=== PATIENT | female | born 1935 | race Caucasian/White ===

== ENCOUNTER → 2017-09-18 | Outpatient (CLI) | payer MEDICARE ==
[~2017-09-18] MED LIST: ALEN70TA2 PO; ASPI81TA94 PO; AZEL137S NS; AZEL205.2 NS; AZEL23SP NS; CALC1CAP26 PO; CHOL200038 PO; DEN60I SUBQ; ERGO2000 PO; FLUT16SP19 NS; GOLYTE PO; GUAI1200 PO; LETPT PO; LETR2.5T4 PO; LOVA10TA63 PO; MON10 PO; OMEP40CA79 PO; PNEU0.5D3 IM; SOLI10TA8 PO; TROS60CA PO; [UNRECOGNIZED DRUG - CODE] PO
[2017-09-18 08:21] LABS: PLATELET COUNT, AUTOMATED 214 K/uL (150-450)
[2017-09-18 08:39] LABS: LDL CHOLESTEROL 121 mg/dl
== END ==
LOC: LAB 08:01
PROVIDERS: ATTEND Internal Medicine
DX: E78.5 Hyperlipidemia, unspecified (principal); M81.0 Age-related osteoporosis without current pathological fracture; E07.9 Disorder of thyroid, unspecified; D75.89 Other specified diseases of blood and blood-forming organs; Z79.899 Other long term (current) drug therapy
CPT/HCPCS: 36415; 82040; 82247; 82310; 82374; 82435; 82465; 82565; 82947; 83718; 84075; 84132; 84155; 84295; 84443; 84450; 84460; 84478; 84520; 85025

== ENCOUNTER → 2017-09-30 | Outpatient (CLI) | payer MEDICARE ==
--- NOTE | 2017-09-30 13:10 | RADIOLOGY IMAGING REPORT ---
FACILITY: [facility] PATIENT NAME: Penny Lozano : 1935 MR: [id number] V: [id number] EXAM DATE: ORDERING PHYSICIAN: CHARLI PRICE TECHNOLOGIST: [place] [facility] [place] Loz[place] : 1935 Visit/Account:[id number] Date of Sevice: 09/30/2017 Left wrist, three views. HISTORY: Left wrist pain status post fall. COMPARISON: None. The bones are osteoporotic. An oblique mildly comminuted fracture is present in the distal radial me taphysis resulting in mild impaction of fracture fragments and mild volar angulation of the distal fr agment. The triangular fibrocartilage is partially calcified. Moderate size marginal osteophytes, s ubchondral sclerosis, subchondral cysts, and severe joint space narrowing are present in the first ca rpal-metacarpal joint. Small marginal osteophytes and small subchondral cysts are present in the sca phoid multangular joint. Mild soft tissue swelling is present in the wrist. A few small calcificati ons are scattered in the soft tissues. IMPRESSION: Distal radius fracture. 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 Report Dictated By: Sha Leon MD at 09/30/2017 1:02 PM Report E-Signed By: Sha Leon MD at 09/30/2017 1:05 PM WSN:[email or web address]
== END ==
LOC: RAD 11:37
PROVIDERS: ATTEND Internal Medicine
DX: S52.502A Unspecified fracture of the lower end of left radius, initial encounter for closed fracture (principal); W19.XXXA Unspecified fall, initial encounter

== ENCOUNTER → 2017-10-08 | Outpatient (CLI) | payer MEDICARE ==
--- NOTE | 2017-10-08 11:33 | RADIOLOGY IMAGING REPORT ---
FACILITY: [facility] PATIENT NAME: CATRACHO MARTINEZ : [id number] MR: [id number] V: [id number] EXAM DATE: ORDERING PHYSICIAN: CHARLI PRICE TECHNOLOGIST: Aye Ortega PROCEDURE:BILATERAL DIGITAL SCREENING MAMMOGRAM WITH CAD ASSISTED INTERPRETATION & 3D TOMOSYNTHESIS COMPARISON:Prior mammograms 09/13/16, 08/16/15, 05/19/15, 08/09/14. INDICATIONS:SCREENING FINDINGS: Mildly heterogeneous fibroglandular tissue is seen throughout the breasts. The Left breast is smaller than the Right and there is an area of postsurgical scaring and architectural distortion in the upper outer quadrant of the Left breast from prior lumpectomy. There is no evidence of malignant appearing mass, malignant appearing calcifications or other secondary sign of malignancy in either breast at this time. DIAGNOSTIC CATEGORY 2--BENIGN FINDING. RECOMMENDATIONS: ROUTINE MAMMOGRAM AND CLINICAL EVALUATION. IMPRESSION: BIRADS 2: Benign finding No significant abnormality is seen at this time. Dictated by: Dorita Chen M.D. on 10/08/2017 at 10:23 Transcribed by: CELESTE on 10/08/2017 at 11:03 Approved by: Dorita Chen M.D. on 10/08/2017 at 11:33 [facility]
== END ==
LOC: MAMO 02:14
PROVIDERS: ATTEND Internal Medicine
DX: Z12.31 Encounter for screening mammogram for malignant neoplasm of breast (principal)
CPT/HCPCS: 77063; 77067

== ENCOUNTER → 2018-03-23 | Outpatient (CLI) | payer MEDICARE ==
[2018-03-23 07:36] LABS: PLATELET COUNT, AUTOMATED 197 K/uL (150-450)
[2018-03-23 07:43] LABS: INR 0.94
== END ==
LOC: LAB 07:17
PROVIDERS: ATTEND Orthopaedic Surgery
DX: M50.30 Other cervical disc degeneration, unspecified cervical region (principal); M54.12 Radiculopathy, cervical region
CPT/HCPCS: 36415; 82310; 82374; 82435; 82565; 82947; 84132; 84295; 84520; 85049; 85610; 85651; 85730

== ENCOUNTER → 2018-10-01 | Outpatient (CLI) | payer MEDICARE ==
[~2018-10-01] MED LIST changes: -ALEN70TA2 PO; +ALEN70TA46 PO
[2018-10-01 08:08] LABS: PLATELET COUNT, AUTOMATED 215 K/uL (150-450)
[2018-10-01 08:21] LABS: LDL CHOLESTEROL 113 mg/dl
== END ==
LOC: LAB 07:37
PROVIDERS: ATTEND Nurse Practitioner Family
DX: M81.0 Age-related osteoporosis without current pathological fracture (principal); Z79.899 Other long term (current) drug therapy; E78.5 Hyperlipidemia, unspecified; D75.89 Other specified diseases of blood and blood-forming organs
CPT/HCPCS: 36415; 82040; 82247; 82310; 82374; 82435; 82465; 82565; 82947; 83718; 84075; 84132; 84155; 84295; 84443; 84450; 84460; 84478; 84520; 85025

== ENCOUNTER → 2018-10-02 | Outpatient (CLI) | payer MEDICARE | LOC: LAB 07:33 | PROVIDERS: ATTEND Nurse Practitioner Family | DX: R71.8 Other abnormality of red blood cells (principal) | CPT/HCPCS: 36415; 82607; 82746; 83090; 83921 ==

== ENCOUNTER 2018-10-06 19:46 | Inpatient (IN) | payer MEDICARE ==
[~2018-10-06] VITALS: Ht 160 cm; Wt 44.5 kg
[2018-10-06] MEDS ORDERED: ONDANSETRON 4 MG/2 ML VIAL IVP ONE (20:05)
[2018-10-06] MEDS ORDERED: NS(*) 0.9% 1000 ML BAG 1,000 ML IV ONE ×2 (20:05→22:00)
[2018-10-06] MEDS ORDERED: fentaNYL CITR 100 MCG/2 ML AMP IVP ONE (20:05)
--- NOTE | 2018-10-06 20:09 | ER Report ---
History and Physical Time Seen By MD: 20:00 Hx. of Stated Complaint: PATIENT STARTED HAVING ABDOMINAL PAIN AROUND 0600 THIS AM, PATIENT HAS HAD VOMITING. TOOK KOPECTATE. HPI/ROS CHIEF COMPLAINT: Abdominal pain HISTORY OF PRESENT ILLNESS: 83-year-old female presents with abdominal pain that began this morning. She states she had oatmeal for breakfast and noted pain throughout her abdomen subsequently. Pain is sharp and crampy. Pain has been constant and is severe. She attempted to take Kaopectate which she vomited 1. She has been continuously nauseous but has not subsequently vomited. She has been belching more than normal. She is not been passing gas today and did not have bowel movement. She has had no recent history of constipation or bloody or black stools. She has never had similar pain in the past. She is had multiple remote surgeries including hysterectomy, bilateral ovarian removal for ovarian cancer. She has not had her appendix or gallbladder removed. She has had surgery for breast cancer as well as brain tumor. She is short of breath that she thinks this is due to the pain. She has no chest pain. She has not had fevers. She has no change in urination. She has no lower extremity edema. REVIEW OF SYSTEMS: Constitutional: No fever, no chills. Eyes: no blurred vision ENT: No sore throat. Cardiovascular: No chest pain, no palpitations. Respiratory: No cough, no shortness of breath. Gastrointestinal: above Genitourinary: no dysuria Musculoskeletal: No back pain. Skin: No rashes. Neurological: No headache. Remainder of the 14 system rev: Yes Allergies: Coded Allergies: codeine (Verified Adverse Reaction, Mild, NAUSEA/VOMITING, 10/06/18) Uncoded Allergies: MORPHINE (Adverse Reaction, Intermediate, NAUSEA/VOMITING, 08/11/14) Home Meds Active Scripts Azelastine Hcl 0.1% [place] (AZELASTINE HCL 0.1% SPRAY) 137 Mcg/0.137 Ml [place].pump, 2 SPRAY NS BID PRN for allergy symptoms, #1 BOTTLE 5 Refills Prov:CHARLI PRICE MD 08/18/18 Trospium Chloride (TROSPIUM CHLORIDE) 60 Mg Cap.er.24h, 1 CAP PO QDAY, #90 CAP 3 Refills Prov:CHARLI PRICE MD 11/16/18 Fluticasone Prop 50 Mcg Ns (FLONASE 50 MCG NS) 16 Gm [place].susp, 1 SPRAY NS BID, #2 BOT 5 Refills Prov:CHARLI PRICE MD 03/13/18 Reported Medications Cholecalciferol (Vitamin D3) (VITAMIN D3) 2,000 Unit Tablet, 1 CAP PO QDAY 03/04/17 Calcium Carbonate/Vitamin D3 (CALCIUM 600 + VIT D 400 SOFTGL) 1 Each Capsule, 1 CAP PO QDAY, CAPSULE 09/11/16 Denosumab (PROLIA) Unknown Strength Injs, 1 SUBQ Every 6 months 10/26/14 Aspirin (ASPIRIN) 81 Mg Tab.chew, 1 TAB PO QODAY, TAB.CHEW 08/11/14 Methylsulfonylmethane (MSM) 1,000 Mg Capsule, 1 CAP PO TID, CAPSULE 03/17/14 Reviewed Nurses Notes: Yes Old Medical Records Reviewed: Yes Hx Smoking: No Smoking Status: Never Smoker Exposure to Second Hand Smoke?: No Hx Substance Use Disorder: No Hx Alcohol Use: Yes Constitutional Vital Sign - Last 24 Hours 10/06/18 10/06/18 10/06/18 10/06/18 19:51 20:00 20:30 20:31 Temp 97.7 Pulse 69 67 Resp 24 B/P (MAP) 108/93 117/78 (91) 113/82 (92) Pulse Ox 98 96 O2 Delivery Room Air 10/06/18 10/06/18 10/06/18 10/06/18 20:36 20:41 20:56 21:00 Pulse 64 ??? 81 B/P (MAP) 124/75 (91) Pulse Ox 89 98 98 10/06/18 10/06/18 10/06/18 10/06/18 21:01 21:06 21:11 21:16 Pulse 74 78 90 83 Pulse Ox 95 89 73 96 10/06/18 10/06/18 10/06/18 10/06/18 21:21 21:26 21:36 21:41 Pulse 82 86 88 83 Pulse Ox 94 95 95 96 10/06/18 10/06/18 10/06/18 10/06/18 21:46 21:51 21:56 22:01 Pulse 87 81 75 82 Pulse Ox 94 95 96 96 10/06/18 10/06/18 10/06/18 10/06/18 22:06 22:11 22:16 22:21 Pulse 83 84 87 82 Pulse Ox 96 97 96 94 Intake and Output 10/06/18 10/06/18 10/07/18 14:59 22:59 06:59 Intake Total 1000 ml Balance 1000 ml Physical Exam General Appearance: The patient is alert, has no immediate need for airway protection and no signs of toxicity. Eyes: Pupils equal and round no pallor or injection. ENT, Mouth: Mucous membranes are moist. Respiratory: There are no retractions, lungs are clear to auscultation. Cardiovascular: Regular rate and rhythm. Gastrointestinal: Patient has lower abdominal distention and bilateral tenderness. She does not have upper abdominal tenderness. She has bowel sounds in all 4 quadrants. She has guarding and slight rebound tenderness in bilateral lower quadrants. Neurological: alert, oriented, moves all ext Skin: Warm and dry, no rashes. Musculoskeletal: Extremities are nontender, nonswollen and have full range of motion. DIFFERENTIAL DIAGNOSIS: After history and physical exam differential diagnosis was considered for abdominal pain including but not limited to appendicitis, obstruction, mass, AAA, cholecystitis, gastritis and urinary tract infection. Medical Decision Making Data Points Result Diagram: 10/06/18199910/06/181999 Laboratory Hematology Test 10/06/18 20:00 10/06/18 21:30 Red Blood Count 4.64 M/uL (4.17-5.56) Mean Corpuscular Volume 99.5 fL (80.0-96.0) Mean Corpuscular Hemoglobin 33.5 pg (26.0-33.0) Mean Corpuscular Hemoglobin Concent 33.6 g/dL (32.0-36.0) Red Cell Distribution Width 13.3 % (11.5-14.5) Mean Platelet Volume 8.3 fL (7.2-11.1) Neutrophils (%) (Auto) 78.2 % (39.4-72.5) Lymphocytes (%) (Auto) 17.5 % (17.6-49.6) Monocytes (%) (Auto) 3.8 % (4.1-12.4) Eosinophils (%) (Auto) 0.1 % (0.4-6.7) Basophils (%) (Auto) 0.4 % (0.3-1.4) Nucleated RBC Relative Count (auto) 0.0 /100WBC Neutrophils # (Auto) 7.8 K/uL (2.0-7.4) Lymphocytes # (Auto) 1.8 K/uL (1.3-3.6) Monocytes # (Auto) 0.4 K/uL (0.3-1.0) Eosinophils # (Auto) 0.0 K/uL (0.0-0.5) Basophils # (Auto) 0.0 K/uL (0.0-0.1) Nucleated RBC Absolute Count (auto) 0.00 K/uL Prothrombin Time 12.2 seconds (12.0-14.4) Prothromb Time International Ratio 0.91 Activated Partial Thromboplast Time 28 seconds (23-35) Sodium Level 138 mmol/L (137-145) Potassium Level 3.4 mmol/L (3.5-5.0) Chloride Level 102 mmol/L (98-107) Carbon Dioxide Level 23 mmol/L (22-31) Blood Urea Nitrogen 20 mg/dl (7-18) Creatinine 1.00 mg/dl (0.52-1.04) Glomerular Filtration Rate Calc 53.2 Random Glucose 132 mg/dl (75-110) Calcium Level 11.0 mg/dl (8.4-10.2) Total Bilirubin 0.5 mg/dl (0.2-1.3) Aspartate Amino Transf (AST/SGOT) 26 U/L (0-35) Alanine Aminotransferase (ALT/SGPT) 24 U/L (0-56) Alkaline Phosphatase 60 U/L (0-126) Total Protein 7.7 g/dl (6.3-8.2) Albumin 4.6 g/dl (3.5-5.0) Lipase 273 U/L (23-300) Urine Color Yellow Urine Clarity Cloudy Urine pH 6.0 pH (4.8-9.5) Urine Specific [place] >1.060 Urine Protein Negative mg/dL (NEGATIVE) Urine Glucose (UA) Negative mg/dL (NEGATIVE) Urine Ketones 20 mg/dL (NEGATIVE) Urine Blood Negative (NEGATIVE) Urine Nitrite Negative (NEGATIVE) Urine Bilirubin Negative (NEGATIVE) Urine Urobilinogen Negative mg/dL (0.2-1.9) Urine Leukocyte Esterase Moderate (NEGATIVE) Urine RBC 7 /HPF (0-2/HPF) Urine WBC 1 /HPF (0-5/HPF) Urine Squamous Epithelial Cells Many /LPF (</=FEW) Urine Transitional Epithelial Cells Few /LPF (NONE-FEW) Urine Bacteria Negative /HPF (NONE-FEW) Urine Mucus Few /HPF (NONE-FEW) Chemistry Test 10/06/18 20:00 10/06/18 21:30 White Blood Count 10.0 k/uL (4.5-11.0) Red Blood Count 4.64 M/uL (4.17-5.56) Hemoglobin 15.5 g/dL (12.0-16.0) Hematocrit 46.2 % (34.0-47.0) Mean Corpuscular Volume 99.5 fL (80.0-96.0) Mean Corpuscular Hemoglobin 33.5 pg (26.0-33.0) Mean Corpuscular Hemoglobin Concent 33.6 g/dL (32.0-36.0) Red Cell Distribution Width 13.3 % (11.5-14.5) Platelet Count 284 K/uL (150-450) Mean Platelet Volume 8.3 fL (7.2-11.1) Neutrophils (%) (Auto) 78.2 % (39.4-72.5) Lymphocytes (%) (Auto) 17.5 % (17.6-49.6) Monocytes (%) (Auto) 3.8 % (4.1-12.4) Eosinophils (%) (Auto) 0.1 % (0.4-6.7) Basophils (%) (Auto) 0.4 % (0.3-1.4) Nucleated RBC Relative Count (auto) 0.0 /100WBC Neutrophils # (Auto) 7.8 K/uL (2.0-7.4) Lymphocytes # (Auto) 1.8 K/uL (1.3-3.6) Monocytes # (Auto) 0.4 K/uL (0.3-1.0) Eosinophils # (Auto) 0.0 K/uL (0.0-0.5) Basophils # (Auto) 0.0 K/uL (0.0-0.1) Nucleated RBC Absolute Count (auto) 0.00 K/uL Prothrombin Time 12.2 seconds (12.0-14.4) Prothromb Time International Ratio 0.91 Activated Partial Thromboplast Time 28 seconds (23-35) Glomerular Filtration Rate Calc 53.2 Calcium Level 11.0 mg/dl (8.4-10.2) Total Bilirubin 0.5 mg/dl (0.2-1.3) Aspartate Amino Transf (AST/SGOT) 26 U/L (0-35) Alanine Aminotransferase (ALT/SGPT) 24 U/L (0-56) Alkaline Phosphatase 60 U/L (0-126) Total Protein 7.7 g/dl (6.3-8.2) Albumin 4.6 g/dl (3.5-5.0) Lipase 273 U/L (23-300) Urine Color Yellow Urine Clarity Cloudy Urine pH 6.0 pH (4.8-9.5) Urine Specific [place] >1.060 Urine Protein Negative mg/dL (NEGATIVE) Urine Glucose (UA) Negative mg/dL (NEGATIVE) Urine Ketones 20 mg/dL (NEGATIVE) Urine Blood Negative (NEGATIVE) Urine Nitrite Negative (NEGATIVE) Urine Bilirubin Negative (NEGATIVE) Urine Urobilinogen Negative mg/dL (0.2-1.9) Urine Leukocyte Esterase Moderate (NEGATIVE) Urine RBC 7 /HPF (0-2/HPF) Urine WBC 1 /HPF (0-5/HPF) Urine Squamous Epithelial Cells Many /LPF (</=FEW) Urine Transitional Epithelial Cells Few /LPF (NONE-FEW) Urine Bacteria Negative /HPF (NONE-FEW) Urine Mucus Few /HPF (NONE-FEW) Coagulation Test 10/06/18 20:00 Prothrombin Time 12.2 seconds Prothromb Time International Ratio 0.91 Activated Partial Thromboplast Time 28 seconds Urinalysis Test 10/06/18 21:30 Urine Color Yellow Urine Clarity Cloudy Urine pH 6.0 pH (4.8-9.5) Urine Specific [place] >1.060 Urine Protein Negative mg/dL (NEGATIVE) Urine Glucose (UA) Negative mg/dL (NEGATIVE) Urine Ketones 20 mg/dL (NEGATIVE) Urine Blood Negative (NEGATIVE) Urine Nitrite Negative (NEGATIVE) Urine Bilirubin Negative (NEGATIVE) Urine Urobilinogen Negative mg/dL (0.2-1.9) Urine Leukocyte Esterase Moderate (NEGATIVE) Urine RBC 7 /HPF (0-2/HPF) Urine WBC 1 /HPF (0-5/HPF) Urine Squamous Epithelial Cells Many /LPF (</=FEW) Urine Transitional Epithelial Cells Few /LPF (NONE-FEW) Urine Bacteria Negative /HPF (NONE-FEW) Urine Mucus Few /HPF (NONE-FEW) ED Course/Re-evaluation ED Course 83 f presents with abdominal pain, distension, vomiting x 1. Findings c/w small bowel obstruction. Pt with improved comfort in ED, HD stable. Consulted Dr. Jackson for admission. Decision to Disposition Date: Oct 06, 2018 Decision to Disposition Time: 20:15 Depart Departure Latest Vital Signs Vital Signs Date Time Temp Pulse Resp B/P (MAP) Pulse Ox O2 Delivery O2 Flow Rate FiO2 10/06/18 22:21 82 94 10/06/18 21:00 124/75 (91) 10/06/18 19:51 97.7 24 Room Air Impression: Primary Impression: Small bowel obstruction Condition: Improved Disposition: Admitted from ER Referrals: CHAZ MARQUEZ APRN BULL WHEEL WORKER-C (PCP) CARLOS MILES MD Oct 06, 2018 20:09
[2018-10-06 20:20] LABS: PLATELET COUNT, AUTOMATED 284 K/uL (150-450)
[2018-10-06 20:26] LABS: INR 0.91
[2018-10-06] MEDS ORDERED: IOPAMIDOL 76% 150 ML INFUS BTL 150 ML ONE (20:48)
--- NOTE | 2018-10-06 21:28 | RADIOLOGY IMAGING REPORT ---
FACILITY: [facility] - [place] PATIENT NAME: Penny Lozano : 1935 MR: [id number] V: [id number] EXAM DATE: ORDERING PHYSICIAN: CARLOS MILES TECHNOLOGIST: [place] [facility] [place] Loz[place] : 1935 Visit/Account:[id number] Date of Sevice: 10/06/2018 ADDENDUM #1 ADDENDUM: Multiple pulmonary nodules as above. In a low risk patient, these require no routine follow-up. In a high risk patient consider optional CT at 12 months. Report Dictated By: Adina Taylor MD at 10/06/2018 9:32 PM Report E-Signed By: Adina Taylor MD at 10/06/2018 9:34 PM ORIGINAL REPORT COMPUTED TOMOGRAPHY OF THE Abdomen and Pelvis with CONTRAST INDICATION: Bilateral lower quadrant pain. TECHNIQUE: Contiguous axial 3.[address] images were obtained through the abdomen and pelvis after 75 m L [id number]. Coronal and sagittal reformatted images were submitted. COMPARISON: None. FINDINGS: Lung bases: 3 mm nodule at the right lung base series 2 image six. 2 mm nodule left lung base series 2 image six. 4 mm nodule right lung base series 2 image nine. 6 mm nodule right lung base series 2 image 10. Liver and hepatic vasculature: Probable cyst in the lateral segment of the left lobe. Several addit ional subcentimeter hypodensities are too small to characterize but are probably cysts. Additional c yst in the right lobe series 2 image 38. A small volume of low attenuation fluid tracks adjacent to the liver and within the left and right paracolic gutters. There is a small volume of fluid in the p chris as well as surrounding several dilated bowel loops. Gallbladder and bile ducts: Normal Spleen: Punctate calcification in the spleen may reflect an old granulomatous process. Pancreas: Normal pancreas. Adrenals: Normal adrenals. Kidneys, ureters and bladder: Symmetric enhancement. There are multiple small renal cysts. Normal- appearing bladder. Retroperitoneum and aorta: Moderate aortic atherosclerosis. No aneurysm. GI tract, mesentery and peritoneum: Multiple small bowel loops are dilated and fluid-filled. Dilatio n measures between three and 4 cm. Several of these loops are thick-walled, especially in the left h emiabdomen no pneumatosis or portal venous gas. There may be a transition point in the low mid abdom en near series 2 image 92. There is gas and stool within the colon. No free air. Uterus and adnexa: Surgically absent uterus. Bones and soft tissues: No acute osseous abnormality. Multilevel degenerative findings in the spine. IMPRESSION: Small bowel obstruction, likely mechanical, with multiple dilated, thick-walled small bowel loops. T here is scattered fluid within the abdomen but no perforation. There may be a transition point in th e low midabdomen. One of the following dose optimization techniques was utilized in the performance of this exam: Autom ated exposure control; adjustment of the mA and/or kV according to the patient's size; or use of an i terative reconstruction technique. Specific details can be referenced in the facility's radiology C T exam operational policy. Report Dictated By: Adina Taylor MD at 10/06/2018 9:12 PM Report E-Signed By: Adina Taylor MD at 10/06/2018 9:24 PM WSN:[email or web address]
[2018-10-06] MEDS ORDERED: FAMOTIDINE(*) 20MG/50ML PREMIX 50 ML IVPB ONE (22:35)
[2018-10-06 23:00] VITALS: BP 147/82
--- NOTE | 2018-10-06 23:48 | Gen Surgery History & Physical ---
History of Present Illness Chief Complaint abd pain History of Present Illness 83 yo f with abd pain since early this am. pain was severe but now is much improved. vomited twice. last bm was yesterday. h/o abd surgeries. pmh/psh: ovarian ca s/p hysterectomy and bso in the s, breast cancer in the and brain tumor in the . fam hx: denies social hx: 1 drink with dinner History Home Meds Active Scripts Azelastine Hcl 0.1% [place] (AZELASTINE HCL 0.1% SPRAY) 137 Mcg/0.137 Ml [place].pump, 2 SPRAY NS BID PRN for allergy symptoms, #1 BOTTLE 5 Refills Prov:CHARLI PRICE MD 08/18/18 Trospium Chloride (TROSPIUM CHLORIDE) 60 Mg Cap.er.24h, 1 CAP PO QDAY, #90 CAP 3 Refills Prov:CHARLI PRICE MD 05/22/18 Fluticasone Prop 50 Mcg Ns (FLONASE 50 MCG NS) 16 Gm [place].susp, 1 SPRAY NS BID, #2 BOT 5 Refills Prov:CHARLI PRICE MD 03/13/18 Reported Medications Cholecalciferol (Vitamin D3) (VITAMIN D3) 2,000 Unit Tablet, 1 CAP PO QDAY 03/04/17 Calcium Carbonate/Vitamin D3 (CALCIUM 600 + VIT D 400 SOFTGL) 1 Each Capsule, 1 CAP PO QDAY, CAPSULE 09/11/16 Denosumab (PROLIA) Unknown Strength Injs, 1 SUBQ Every 6 months 10/26/14 Aspirin (ASPIRIN) 81 Mg Tab.chew, 1 TAB PO QODAY, TAB.CHEW 08/11/14 Methylsulfonylmethane (MSM) 1,000 Mg Capsule, 1 CAP PO TID, CAPSULE 03/17/14 Allergies: Coded Allergies: codeine (Verified Adverse Reaction, Mild, NAUSEA/VOMITING, 10/06/18) Uncoded Allergies: MORPHINE (Adverse Reaction, Intermediate, NAUSEA/VOMITING, 08/11/14) Patient History: FH: AL (myocardial infarction) MOTHER, , Age:62 FH: diabetes mellitus MATERNAL GRANDMOTHER, MATERNAL COUSIN, MATERNAL AUNT, FH: lung cancer PATERNAL GRANDFATHER, FH: pneumonia BROTHER OR SISTER, , Age:58 FH: prostate cancer MATERNAL GRANDFATHER, FHx: leukemia MATERNAL GRANDMOTHER, Review of Systems Constitutional: Other (10 pt ros neg except per hpi) Exam General Appearance: Alert, Awake, No Acute Distress Neuro: No Gross deficits Eyes: Other (per, eomi) ENT: Moist Mucous Membranes Neck: No Masses Cardiovascular: Other (reg rate) Respiratory: No Respiratory Distress GI: Other (soft, minimal distended and minimally ttp, well-healed surg scars) Extremities: Other (no pitting edema) Integumentary: Skin Intact without Lesion / Mass Psych: Alert & Oriented X3, Appropriate Mood & Affect Medical Decision Making Data Points Result Diagram: 10/06/18199910/06/181999 Assessment and Plan Problems: (1) Small bowel obstruction Assessment & Plan: 10/06/18: comfortable, minimal distention. npo, ivf, serial exams. if no resolution may need gastrografin and/or surgery. Copies to: CHAZ MARQUEZ APRN ASSISTANT CLINICAL DIRECTOR-C ; Venous Thromboembolism Antithrombotics Is Pt On Any Antithrombotics?: No OSMANI WARD Oct 06, 2018 23:48
[2018-10-07] MEDS: fentaNYL CITR 100 MCG/2 ML AMP IVP PRN ×2 (00:26→07:54)
[2018-10-07] MEDS: ONDANSETRON 4 MG/2 ML VIAL IVP PRN ×3 (02:34→18:35)
[2018-10-07 04:22] VITALS: BP 125/67
[2018-10-07 07:30] VITALS: BP 129/80
[2018-10-07 09:09] VITALS: BMI 17.4
--- NOTE | 2018-10-07 09:30 | General Surgery Progress Note ---
Subjective Progress Notes Subjective abd pain. no flatus or bm overnight. nausea but no vomiting. she thinks pain meds make her nauseous. Physical Exam Vital Signs Date Time Temp Pulse Resp B/P (MAP) Pulse Ox O2 Delivery O2 Flow Rate FiO2 10/07/18 07:30 98.9 72 12 129/80 (96) 92 Nasal Cannula 10/07/18 04:22 1.0 Intake and Output 10/07/18 07:00 Intake Total 1050 ml Balance 1050 ml Intake IV Total 1050 ml # Voids 1 General Appearance: No Acute Distress Cardiovascular: Other (reg rate) GI: Other (sof, minimal distention) Result Diagram: 10/06/18199910/06/181999 Assessment and Plan Problems: (1) Small bowel obstruction Assessment & Plan: 10/06/18: comfortable, minimal distention. npo, ivf, serial exams. if no resolution may need gastrografin and/or surgery. 10/07/18: stable. serial exams. as above. Exam Sepsis Risk: No Definite Risk OSMANI WARD Oct 07, 2018 09:30
[2018-10-07] MEDS ORDERED: HYDROmorphone HCL 2 MG/ML SDV IVP PRN (09:35)
[2018-10-07] MEDS: PANTOPRAZOLE SOD 40 MG IV VIAL IVP SCH (09:37)
[2018-10-07 11:14] VITALS: BP 116/64
[2018-10-07] MEDS ORDERED: fentaNYL CITR 100 MCG/2 ML AMP IVP PRN (11:50)
[2018-10-07] MEDS ORDERED: ACETAMINOPHEN(*)1000 MG/100 ML 100 ML IVPB SCH (12:00)
[2018-10-07] MEDS: ACETAMINOPHEN(*)1000 MG/100 ML 100 ML IVPB PRN ×2 (13:11→19:21)
[2018-10-07] MEDS: NS(*) 0.9% 1000 ML BAG 1,000 ML IV PRN (14:42)
[2018-10-07 15:11] VITALS: BP 115/66
[2018-10-07 15:22] VITALS: Ht 160 cm; Wt 44.5 kg
--- NOTE | 2018-10-07 15:24 | Medical Nutrition Therapy ---
Nutrition Anthropometrics Height (Inches): 63.00 Height (Calculated Centimeters: 160.464462 Weight (Pounds): 98 Weight (Calculated Kilograms): 44.707 BMI: 17.5 Yomi Nutrition Score: Adequate Yomi Nutrition Risk Score: 22 Dietary Referral Nutrition Risk Factors: Nutrition Risk Comment: Physical Findings Physical Appearance: Underweight BMI<19 Skin Appearance Skin Appearance: Edema Edema Location Modifier: Edema Location: Type of Edema: Degree of Edema: Gastrointestinal Symptoms GI Symtoms: Nausea, Change in Bowel Pattern Tube Present: Bowel Sounds: Recent Bowel Pattern: Stool Characteristics: Nutritional Diagnosis Nutritional Risk Acuity 1: GI Obstruction Nutritional Risk Acuity 2: %IBW 75-80% Nutritional Risk Acuity 4: Age Related Past Medical History: breast cancer, brain tumor. Nutritional Acuity: 1-High Nutrition Diagnosis: Inadequate Food Intake Nutrition Etiology: Physiological Causes Nutrition Problem/Etiology/Sym: Inadequate food intake related to physiological causes as evidenced by GI obstruction and BMI of 17.5 (underweight). Energy Requirement: 1260 (MSJ, 1.1 TEF, 1.3 AF) Adjusted Energy Requirement Re: 1510 (+250kcal) Protein Requirement: 54 (1.2g AA/kg of BW) Fluid Requirement: 1260 (1m l/kcal) Diet Type: NPO (Nothing by Mouth) Nutrition Intervention: Incr diet as tolerated Diet Comment To RSA: 10/07: NPO day 1 Nutrition Monitoring & Eval RD Patient Assessment Time: [address] Assessment Type: RD Assessment Patient Nutrition Acuity: 1-High Follow Up Date: Oct 09, 2018 Nutritional Comment: 10/07: Pt admitted for small bowel obstruction and vomiting. Pt has hx of breast cancer and brain tumor. Pt has decresaed potassium (3.4), and elevated BUN (20), RBG (132), and calcium (11) levels. Pt has BMI of 17.5 (underweight). Pt is day 1 NPO, continue to monitor and increase diet as able. -RUDY MISHRA Oct 07, 2018 09:16
[2018-10-07] MEDS ORDERED: DIATRIZOATE MEGL/DIATRIZOA SOD 367 MG/ML SOLN PO ONE (16:40)
[2018-10-07] MEDS ORDERED: DIATRIZOATE MEGL/DIATRIZOA SOD 367 MG/ML SOLN ONE (17:18)
[2018-10-07] MEDS ORDERED: DIATRIZOATE MEGL/DIATRIZOA SOD 120 ML SOLN PO ONE (18:07)
[2018-10-07 18:56] VITALS: BP 122/80
[2018-10-07 23:23] VITALS: BP 138/80
[2018-10-08] VITALS (17 sets, daily range): BP systolic 93–150; BP diastolic 50–104
[2018-10-08] MEDS: ONDANSETRON 4 MG/2 ML VIAL IVP PRN ×2 (01:01→10:45)
[2018-10-08] MEDS: ACETAMINOPHEN(*)1000 MG/100 ML 100 ML IVPB PRN (01:18)
[2018-10-08] MEDS: NS(*) 0.9% 1000 ML BAG 1,000 ML IV PRN (06:38)
--- NOTE | 2018-10-08 08:28 | RADIOLOGY IMAGING REPORT ---
FACILITY: [facility] - [place] PATIENT NAME: Penny Lozano : 1935 MR: [id number] V: [id number] EXAM DATE: ORDERING PHYSICIAN: OSMANI WARD TECHNOLOGIST: Location: [facility] [place] Patient: Penny Lozano : 1935 Visit/Account:[id number] Date of Sevice: 10/07/2018 Exam type: XR SMALL BOWEL SERIES History: SBO Comparison: CT abdomen pelvis October 06, 2018. Findings: The patient received 480 mL of Gastrografin orally. Images were obtained following Gastrografin nikko stion and two, four, eight and 12 hours post Gastrografin administration on the immediate image the s tomach was mildly distended with Gastrografin. The duodenum and proximal portion of the jejunum were also imaged without dilatation. On the two-hour image Gastrografin had passed through the jejunum a nd appears to enter the ileum. These small bowel loops are moderately dilated. On for eight and 12 hour images there is progressive passage of the Gastrografin through the small bowel which at this po int appears slightly less dilated although there was some small bowel dilatation on the left. The co reece had not been visualized on the 12 hour image incidentally noted is a battery pack and lead projec ting over the right side of the pelvis IMPRESSION: 1. Findings are consistent with a small bowel obstruction. On the 12 hour image there is slightly l ess dilatation of small bowel loops although the Gastrografin had not yet entered the colon Report Dictated By: Dorita Chen MD at 10/08/2018 8:14 AM Report E-Signed By: Dorita Chen MD at 10/08/2018 8:23 AM WSN:[email or web address]
[2018-10-08 08:50] LABS: PLATELET COUNT, AUTOMATED 237 K/uL (150-450)
--- NOTE | 2018-10-08 08:55 | General Surgery Progress Note ---
Subjective Progress Notes Subjective very small bms. vomiting. Physical Exam Vital Signs Date Time Temp Pulse Resp B/P (MAP) Pulse Ox O2 Delivery O2 Flow Rate FiO2 10/08/18 07:26 98.1 84 18 119/79 (92) 97 Oxy Mask 3.0 Intake and Output 10/08/18 07:00 Intake Total 2100 ml Output Total 2750 ml Balance -650 ml Intake IV Total 2100 ml Output Emesis 1750 ml Oral Regurgitation 1000 ml # Voids 5 # Bowel Movements 1 # Emeses 2 General Appearance: Other (stable) Cardiovascular: Other (reg rate) GI: Other (soft) Result Diagram: 10/08/18 0842 10/06/181999 Assessment and Plan Problems: (1) Small bowel obstruction Assessment & Plan: 10/06/18: comfortable, minimal distention. npo, ivf, serial exams. if no resolution may need gastrografin and/or surgery. 10/07/18: stable. serial exams. as above. 10/08/18: no resolutions with gastrografin. surgery today. Exam Sepsis Risk: No Definite Risk OSMANI WARD Oct 08, 2018 08:55
[2018-10-08] MEDS: PANTOPRAZOLE SOD 40 MG IV VIAL IVP SCH (09:00)
--- NOTE | 2018-10-08 09:59 | RADIOLOGY IMAGING REPORT ---
FACILITY: [facility] - [place] PATIENT NAME: Penny Lozano : 1935 MR: [id number] V: [id number] EXAM DATE: ORDERING PHYSICIAN: OSMANI WARD TECHNOLOGIST: Location: [facility] Patient: Penny Lozano : 1935 Visit/Account:[id number] Date of Sevice: 10/08/2018 Exam type: CHEST SINGLE AP History: Pre-op protocol, please complete prior to 1100 Comparison: None. Findings: The lungs are free of acute effusions, infiltrates or edema. The cardiac silhouette is normal in siz e. The trachea is in midline. There are postsurgical changes from a left mastectomy. IMPRESSION: 1. No acute cardiopulmonary process is seen Report Dictated By: Dorita Chen MD at 10/08/2018 9:53 AM Report E-Signed By: Dorita Chen MD at 10/08/2018 9:53 AM WSN:[email or web address]
--- NOTE | 2018-10-08 10:06 | EKG ---
FACILITY: [facility] PATIENT NAME: CATRACHO MARTINEZ : [id number] MR: [id number] V: [id number] EXAM DATE: ORDERING PHYSICIAN: OSMANI WARD TECHNOLOGIST: NIKUNJ Test Reason : PRE OP Blood Pressure : / mmHG Vent. Rate : 084 BPM Atrial Rate : 084 BPM P-R Int : 200 ms QRS Dur : 070 ms QT Int : 374 ms P-R-T Axes : 078 049 010 degrees QTc Int : 441 ms Sinus rhythm with premature atrial complexes with 1st degree AV block Otherwise normal ECG No previous ECGs available Confirmed by AUDIE PERDOMO ([id number]) on 10/08/2018 11:05:52 AM Referred By: ED Confirmed By:AUDIE PERDOMO
[2018-10-08] MEDS ORDERED: NORMOSOL R SOLN(*) 1000 ML BAG 1,000 ML IV ONE ×2 (11:00→13:37)
[2018-10-08] MEDS ORDERED: FAMOTIDINE(*) 20MG/50ML PREMIX 50 ML IVPB ONE (11:00)
[2018-10-08] MEDS ORDERED: DEXAMETHASONE SOD 4 MG/ML VIAL ONE (11:41)
[2018-10-08] MEDS ORDERED: ROCURONIUM BROM 10 MG/ML 10 ML ONE (11:41)
[2018-10-08] MEDS ORDERED: ONDANSETRON 4 MG/2 ML VIAL ONE (11:41)
[2018-10-08] MEDS ORDERED: SUGAMMADEX SOD 200 MG/2 ML SDV ONE (11:41)
[2018-10-08] MEDS ORDERED: fentaNYL CITR 250 MCG/5 ML AMP ONE (11:41)
[2018-10-08] MEDS ORDERED: LIDOCAINE MPF 1% 5 ML VIAL ONE (11:41)
[2018-10-08] MEDS ORDERED: PROPOFOL EMUL(*) 10MG/ML 20 ML 20 ML ONE (11:41)
[2018-10-08] MEDS ORDERED: fentaNYL CITR 100 MCG/2 ML AMP ONE ×2 (11:58→12:47)
[2018-10-08] MEDS ORDERED: KETAMINE HCL 200 MG/20 ML MDV ONE (12:00)
[2018-10-08] MEDS ORDERED: BUPIVACAINE/EPI 0.5% 50ML VIAL INFIL ONE (12:11)
[2018-10-08] MEDS ORDERED: ceFAZolin(*) 2GM/D5W 50ML 50 ML IVPB ONE (12:15)
[2018-10-08] MEDS ORDERED: APAP/HYDROCODONE 325/5 TAB PO PRN (14:30)
--- NOTE | 2018-10-08 14:39 | Post Operative Progress Note ---
Post Operative Progress Note Surgeon: dr. amandeep villarreal Heating Plant Superintendent: none Anesthesia: gen, local Pre-Op Diagnosis: sbo Post-Op Diagnosis: same Findings: band Procedure(s): dx lap, manuel Complications: none Estimated Blood Loss: minimal OSMANI VILLARREAL Oct 08, 2018 14:39
[2018-10-09 03:32] VITALS: BP 93/67
[2018-10-09 05:56] VITALS: BP 110/71
[2018-10-09 07:15] LABS: PLATELET COUNT, AUTOMATED 190 K/uL (150-450)
--- NOTE | 2018-10-09 07:15 | General Surgery Progress Note ---
Subjective Progress Notes Subjective doing well. +bm. no n/v. Physical Exam Vital Signs Date Time Temp Pulse Resp B/P (MAP) Pulse Ox O2 Delivery O2 Flow Rate FiO2 10/09/18 07:09 83 10/09/18 05:56 65 16 110/71 (84) Nasal Cannula 2.0 10/08/18 19:50 98.2 Intake and Output 10/09/18 07:00 Intake Total 1125 ml Balance 1125 ml IV Total 1125 ml # Voids 4 # Bowel Movements 1 General Appearance: No Acute Distress Cardiovascular: Other (reg rate) GI: Other (soft) Result Diagram: 10/08/18 0842 10/06/181999 Assessment and Plan Problems: (1) Small bowel obstruction Assessment & Plan: 10/06/18: comfortable, minimal distention. npo, ivf, serial exams. if no resolution may need gastrografin and/or surgery. 10/07/18: stable. serial exams. as above. 10/08/18: no resolutions with gastrografin. surgery today. 10/09/18: s/p dx lap and dividing of adhesive band. doing well. advance diet. likely home today. Exam Sepsis Risk: No Definite Risk OSMANI WARD Oct 09, 2018 07:15
[2018-10-09 07:32] VITALS: BP 116/70
--- NOTE | 2018-10-09 08:03 | OPERATIVE REPORT 1 ---
EVENT DATE: October 08, 2018 SURGEON: Javier Jackson MD ANESTHESIOLOGIST: Tanner Graham MD ANESTHESIA: General and local. CAR KNOCKER: None. PREOPERATIVE DIAGNOSIS Small bowel obstruction. POSTOPERATIVE DIAGNOSIS Small bowel obstruction. PROCEDURE PERFORMED 1. Diagnostic laparoscopy. 2. Lysis of adhesions. FLUIDS IV crystalloid. ESTIMATED BLOOD LOSS Minimal. SPECIMENS None. COMPLICATIONS None. INDICATIONS This is an 83-year old female with a small bowel obstruction. Conservative measures have not resolved the obstructions. Risks and benefits of the procedure explained and consent was signed. DESCRIPTION OF PROCEDURE Patient was taken to the operating room and placed in the supine position. General anesthesia was administered per the Anesthesia Team. Patient was prepped and draped in normal sterile fashion. Local analgesia was injected into the dermis below the left costal margin and a small incision was made. OptiView technique was used to easily enter the abdomen. Pneumoperitoneum was achieved. After injecting local anesthesia and under direct vision, a 5 mm supraumbilical port and 5 mm right sided port were placed. I inspected the abdomen. There was no injury upon entry. There were some adhesions to the abdominal wall. These were taken down with LigaSure and sharp dissection. This took approximately ten minutes. I quickly identified the area of obstruction. There was a single band that was obstructing the small bowel. This was divided. The bowel was viable. It was patent. I did look at other areas and found some adhesions which were divided sharpy. These other adhesions, however, were not obstructing bowel. I inspected the bowel proximally and distally and found an area of nondilated bowel and tracked this back to the site of obstruction in order to confirm that I had resolved the issue. Hemostasis was assured. Ports were removed under direct vision. Pneumoperitoneum was relieved. The port was removed. All skin incisions were closed with 4-0 Monocryl subcuticular stitches, more local analgesia injected and appropriate dressings were applied. The patient tolerated the procedure well. There were no complications. [facility]
[2018-10-09] MEDS ORDERED: ENOXAPARIN 30 MG/0.3 ML SYR SC SCH (09:00)
[2018-10-09] MEDS ORDERED: ENOXAPARIN 40 MG/0.4ML SYR SC SCH (09:00)
[2018-10-09] MEDS: PANTOPRAZOLE SOD 40 MG IV VIAL IVP SCH (09:45)
[2018-10-09 11:00] VITALS: BP 105/71
--- NOTE | 2018-10-09 11:00 | Medical Nutrition Therapy ---
Nutrition Anthropometrics Height (Inches): 63.00 Height (Calculated Centimeters: 160.340095 Weight (Pounds): 98 Weight (Calculated Kilograms): 44.707 BMI: 17.5 Yomi Nutrition Score: Probably Inadequate Yomi Nutrition Risk Score: 19 Dietary Referral Nutrition Risk Factors: Nutrition Risk Comment: Physical Findings Physical Appearance: Underweight BMI<19 Skin Appearance Skin Appearance: Edema Edema Location Modifier: Edema Location: Type of Edema: Degree of Edema: Gastrointestinal Symptoms GI Symtoms: Nausea, Vomiting, Change in Bowel Pattern Tube Present: Bowel Sounds: Recent Bowel Pattern: Stool Characteristics: Nutritional Diagnosis Nutritional Risk Acuity 1: GI Obstruction Nutritional Risk Acuity 2: %IBW 75-80% Nutritional Risk Acuity 3: %IBW 81-89% Nutritional Risk Acuity 4: Age Related Past Medical History: breast cancer, brain tumor. Nutritional Acuity: 1-High Nutrition Diagnosis: Inadequate Food Intake Nutrition Etiology: Physiological Causes Nutrition Problem/Etiology/Sym: Inadequate food intake related to physiological causes as evidenced by GI obstruction and BMI of 17.5 (underweight). Energy Requirement: 1260 (MSJ, 1.1 TEF, 1.3 AF) Adjusted Energy Requirement Re: 1510 (+250kcal) Protein Requirement: 54 (1.2g AA/kg of BW) Fluid Requirement: 1260 (1m l/kcal) Diet Type: Soft Mechanical Nutrition Intervention: Incr diet as tolerated Nutrition Monitoring & Eval RD Patient Assessment Time: [address] Assessment Type: RD Re-Assessment Patient Nutrition Acuity: 1-High Follow Up Date: Oct 12, 2018 Nutritional Comment: 10/07: Pt admitted for small bowel obstruction and vomiting. Pt has hx of breast cancer and brain tumor. Pt has decresaed potassium (3.4), and elevated BUN (20), RBG (132), and calcium (11) levels. Pt has BMI of 17.5 (underweight). Pt is day 1 NPO, continue to monitor and increase diet as able. -SEVEN 10/09: Pt doing well and tolerating diet per doctors note. Pt has BMI of 17.4 and elevated BUN (24) levels. Pt is on a soft mechanical diet. Pt has insufficient intake charted, cannot determine average intake at this time. -RUDY MISHRA Oct 09, 2018 10:06
--- NOTE | 2018-10-09 13:24 | Hospitalist Depart ---
Discharge Summary Reason for Hosp/Final Diag: (1) Small bowel obstruction Hospital Course & Plan: 10/06/18: comfortable, minimal distention. npo, ivf, serial exams. if no resolution may need gastrografin and/or surgery. 10/07/18: stable. serial exams. as above. 10/08/18: no resolutions with gastrografin. surgery today. 10/09/18: s/p dx lap and dividing of adhesive band. doing well. advance diet. likely home today. Departure Weight (Pounds): 98 Weight (Ounces): 9.0 Result Diagram: 10/09/18 0710/09/18 07 Condition: Improved Discharge Instructions Home Meds Active Scripts Azelastine Hcl 0.1% Angelica (AZELASTINE HCL 0.1% SPRAY) 137 Mcg/0.137 Ml Angelica.pump, 2 SPRAY NS BID PRN for allergy symptoms, #1 BOTTLE 5 Refills Prov:CHARLI PRICE MD 08/18/18 Trospium Chloride (TROSPIUM CHLORIDE) 60 Mg Cap.er.24h, 1 CAP PO QDAY, #90 CAP 3 Refills Prov:CHARLI PRICE MD 05/22/18 Fluticasone Prop 50 Mcg Ns (FLONASE 50 MCG NS) 16 Gm Angelica.susp, 1 SPRAY NS BID, #2 BOT 5 Refills Prov:CHARLI PRICE MD 03/13/18 Reported Medications Cholecalciferol (Vitamin D3) (VITAMIN D3) 2,000 Unit Tablet, 1 CAP PO QDAY 03/04/17 Calcium Carbonate/Vitamin D3 (CALCIUM 600 + VIT D 400 SOFTGL) 1 Each Capsule, 1 CAP PO QDAY, CAPSULE 09/11/16 Denosumab (PROLIA) Unknown Strength Injs, 1 SUBQ Every 6 months 10/26/14 Aspirin (ASPIRIN) 81 Mg Tab.chew, 1 TAB PO QODAY, TAB.CHEW 08/11/14 Methylsulfonylmethane (MSM) 1,000 Mg Capsule, 1 CAP PO TID, CAPSULE 03/17/14 Diet: Regular Activity: As Tolerated Special Instructions: f/u dr. chirag villarreal 2 wks ([phone]) ok to shower Venous Thromboembolism Antithrombotics Is Pt On Any Antithrombotics?: OSMANI Bravo Oct 09, 2018 13:24
== END 2018-10-09 15:09 | disposition home or self-care (01) | DRG 337 ==
LOC: ER 20:10 → MED 22:25
PROVIDERS: ADMIT Surgery; ATTEND Surgery
PROC: 0DN80ZZ Release Small Intestine, Open Approach (ICD-10-PCS; principal; 2018-10-08 12:32)
DX: K56.50 Intestinal adhesions [bands], unspecified as to partial versus complete obstruction (principal); Z90.710 Acquired absence of both cervix and uterus; Z85.43 Personal history of malignant neoplasm of ovary; Z88.5 Allergy status to narcotic agent
CPT/HCPCS: 36415; 71045; 74177; 74250; 81001; 82040; 82247; 82310; 82374; 82435; 82565; 82947; 83519; 83690; 84075; 84132; 84155; 84295; 84450; 84460; 84520; 85025; 85610; 85730; 93005; 96361; 96365; 96374; 96375; 96376; 99285; C9113; J0131; J1100; J1650; J2001; J2405; J2704; J3010; J3490; J7030; Q9967

== ENCOUNTER → 2018-11-17 | Outpatient (CLI) | payer MEDICARE ==
[2018-10-07 15:22] VITALS: BMI 17.4
--- NOTE | 2018-11-17 10:18 | RADIOLOGY IMAGING REPORT ---
FACILITY: [facility] - [place] PATIENT NAME: Penny Lozano : 1935 MR: [id number] V: [id number] EXAM DATE: ORDERING PHYSICIAN: CHAZ MARQUEZ TECHNOLOGIST: Location: [facility] Patient: Penny Lozano : 1935 Visit/Account:[id number] Date of Sevice: 11/17/2018 DEXA Scan Clinical history: Osteoporosis. Comparison: DEXA scan from 09/13/2016. LUMBAR SPINE: The bone mineral density (BMD) measured from L1-L4 correlates with a Z-score of -0.2 and a T-score of -2.8 which is osteoporosis as defined by the World Health Organization. The corresponding risk of f racture in the lumbar spine is 6-8 times increased compared with a young adult reference population. This value has increased by 6.3 % since the prior study. More than 5% change is considered signific ant. HIP: Bone mineral density (BMD) measured in the LEFT total hip region correlates with a Z-score 1.4 and a T-score of -1.2 which is osteopenia as defined by the World Health Organization. The corresponding r isk of fracture in the hip is 2-3 times increased compared to a young adult reference population. Thi s value has increased by 4.5 % since the prior study. More than 5% change is considered significant. T score left femoral neck -0.8 Bone mineral density (BMD) measured in the Femoral Neck region measures 0.931 g/cm?. IMPRESSION: 1. Lumbar spine: Osteoporosis. There has been 6.3% increase in the bone mineral density since the p revious exam. 2. Left Total Hip: Osteopenia. There has been 0.5% increase in the bone mineral density since the p revious exam. 3. Femoral Neck: Bone Mineral Density is 0.931 g/cm? The next DEXA scan of this patient should include the following sites: L1-L4 and the left hip. FRAX? WHO Fracture Risk Assessment Tool link: <http://www.shef.ac.uk/FRAX/tool.jsp?locationValue=9> PLEASE NOTE: 1) The World Health Organization defines low BMD as follows: T-score Normal > -1 Osteopenia < -1 and > -2.5 Osteoporosis < -2.5 without fractures Established osteoporosis < -2.5 with fractures 2) In general, you may wish to consider: Diagnosis Treatment Follow-up DEXA Normal BMD Prevention 2-3 years Osteopenia Prevention/therapy 1-2 years Osteoporosis Therapy Yearly 3) Fracture risk estimated from the T-score is more accurate for vertebral fractures (often spontane ous) than for hip fractures. Report Dictated By: Dorita Chen MD at 11/17/2018 10:02 AM Report E-Signed By: Dorita Chen MD at 11/17/2018 10:13 AM MATTIN:REGINALDO
--- NOTE | 2018-11-18 09:49 | RADIOLOGY IMAGING REPORT ---
FACILITY: [facility] - [place] PATIENT NAME: CATRACHO MARTINEZ : [id number] MR: [id number] V: [id number] EXAM DATE: [id number] ORDERING PHYSICIAN: CHAZ MARQUEZ TECHNOLOGIST: Aye Ortega PROCEDURE: BILATERAL DIGITAL SCREENING MAMMOGRAM WITH CAD ASSISTED INTERPRETATION & 3D TOMOSYNTHESIS. REASON FOR STUDY: Screening. FAMILY HISTORY OF BREAST CANCER: None Reported. BREAST PROCEDURES/TREATMENTS: Benign lumpectomy upper outer quadrant of the Right breast in 1996. Malignant biopsy of the Left breast in 1997 with radiation and chemo therapy. The patient also reports ovarian cancer in 1978. COMPARISON: 10/08/17, 09/13/16, 08/16/15, 05/19/15. VIEWS OBTAINED: 2D & 3D full field CC & MLO in addition to a full field Left XCC. BREAST DENSITY: The breasts are heterogeneously dense which can obscure small masses. MAMMOGRAM FINDINGS: The Left breast is smaller than the Right. There is a surgical clip in the upper outer quadrant of the Right breast in the middle depth. The parenchymal pattern has remained stable allowing for difference in mammographic technique & patient positioning. The area of architectural distortion and postsurgical scaring in the upper outer quadrant of the Left breast has remained stable. IMPRESSION: BIRADS 2: Benign finding. DIAGNOSTIC CATEGORY 2--BENIGN FINDING. RECOMMENDATIONS: ROUTINE MAMMOGRAM AND CLINICAL EVALUATION. Dictated by: Dorita Chen M.D. on 11/17/2018 at 16:14 Transcribed by: CELESTE on 11/18/2018 at 8:18 Approved by: Dorita Chen M.D. on 11/18/2018 at 9:48 [facility]
== END ==
LOC: MAMO 00:37
PROVIDERS: ATTEND Nurse Practitioner Family
DX: Z12.31 Encounter for screening mammogram for malignant neoplasm of breast (principal); M85.852 Other specified disorders of bone density and structure, left thigh; M85.88 Other specified disorders of bone density and structure, other site
CPT/HCPCS: 77063; 77067; 77080